=== PATIENT | female | born 1960 | race Caucasian/White ===

== ENCOUNTER → 2017-06-02 | Outpatient (CLI) | payer OTHER | LOC: MC.RAD 05-26 13:40 | DX: Z12.31 Encounter for screening mammogram for malignant neoplasm of breast (principal) ==

== ENCOUNTER → 2018-10-07 | Outpatient (CLI) | payer BC | LOC: MC.RAD 08:15 | DX: Z12.31 Encounter for screening mammogram for malignant neoplasm of breast (principal) ==

== ENCOUNTER → 2020-02-29 | Outpatient (CLI) | payer BC ==
[~2020-02-29] MED LIST: ALDACTONE 25MG25 M1 PO; CELEBREX50 MG PO; PROBIOTIC ACID1.5 MG PO
== END ==
LOC: MC.RAD 08:21
DX: Z12.31 Encounter for screening mammogram for malignant neoplasm of breast (principal)

== ENCOUNTER → 2021-05-01 | Outpatient (CLI) | payer BC | LOC: MC.RAD 08:15 | DX: Z12.31 Encounter for screening mammogram for malignant neoplasm of breast (principal) ==

== ENCOUNTER 2022-07-26 10:16 | Emergency (ER) | payer BC ==
[~2022-07-26] VITALS: Ht 162.6 cm; Wt 65.0 kg
[2022-07-26 10:18] VITALS: TEMP 98.8
[2022-07-26 11:18] LABS: BASO # 0.1 K/mm3 (0.0-0.2); BASO % 0.6 % (0.0-2.0); EOS # 0.1 K/mm3 (0.0-0.7); EOS % 0.6 % (0.0-4.0); GRAN # 7.3 K/mm3 (1.4-6.5); GRAN % 81.8 % (42.2-75.2); HEMATOCRIT 39.7 % (37.0-47.0); HEMOGLOBIN 13.3 g/dl (12.5-16.0); LYMPH % 10.8 % (20.0-51.0); MEAN CELL VOLUME 97 fl (80.0-100.0); MEAN CORPUSCULAR HEMOGLOBIN 33 pg (27-31); MEAN CORPUSCULAR HGB CONC 34 g/dl (33.0-37.0); MEAN PLATELET VOLUME 10.3 fl (7.4-10.4); MONO # 0.5 K/mm3 (0.1-0.6); MONO % 5.9 % (1.7-9.3); PLATELET COUNT 212 K/mm3 (130-400); RED BLOOD COUNT 4.08 M/mm3 (4.10-5.30); REDCELL DISTRIBUTION WIDTH-CV 11.7 % (11.5-14.5)
[2022-07-26 11:35] LABS: ALBUMIN 3.3 gm/dL (3.4-4.8); BILIRUBIN,TOTAL 0.9 mg/dL (0.2-1.2); CALCIUM 8.1 mg/dL (8.4-10.2); CREATININE, serum 0.74 mg/dL (0.57-1.11); POTASSIUM 3.9 mmol/L (3.5-4.5); TOTAL PROTEIN 5.3 gm/dL (6.2-8.1)
[2022-07-26 13:17] VITALS: BP 111/71; PULSE 76
== END 2022-07-26 13:20 | disposition home or self-care (01) ==
LOC: COL.ER 10:16
PROVIDERS: Physician Assistant
DX: R10.32 Left lower quadrant pain (principal); R10.12 Left upper quadrant pain; Z98.890 Other specified postprocedural states; Z88.5 Allergy status to narcotic agent; Z28.310 Unvaccinated for COVID-19
CPT/HCPCS: J2405; J3010; J7030; Q9967